=== PATIENT | male | born 1955 | race Caucasian/White ===

== ENCOUNTER 2021-05-23 11:52 | Observation (INO) | payer MEDICARE, MEDICAID ==
[~2021-05-23] VITALS: Ht 172.7 cm; Wt 62.1 kg
[~2021-05-23 11:52] MED LIST: AMLODIPINE BESY10 MG PO; ASPIRIN EC81 MG PO; FLONASE 0.05% N16 GM; HYDROCHLOROTHIA25 MG PO; LISINOPRIL40 MG PO; PROAIR HFA8.5 GM INH; VITAMIN D21250 MCG PO; ZYRTEC10 MG PO
[2021-05-23 12:45] LABS: HEMOGLOBIN 13.7 gm/dl (14.0-17.5); RED BLOOD COUNT 4.53 M/UL (4.20-5.50); WHITE BLOOD COUNT 11.6 K/UL (4.5-11.0)
[2021-05-23 13:08] LABS: BUN/CREATININE RATIO 13 (0-10)
[2021-05-23 20:09] LABS: BUN/CREATININE RATIO 12 (0-10)
[2021-05-24 01:43] LABS: HEMOGLOBIN 11.6 gm/dl (14.0-17.5); RED BLOOD COUNT 3.87 M/UL (4.20-5.50)
[2021-05-24 02:06] LABS: BUN/CREATININE RATIO 14 (0-10)
[2021-05-25 04:28] LABS: BUN/CREATININE RATIO 15 (0-10)
== END 2021-05-25 12:00 | disposition home or self-care (01) ==
LOC: ER1 11:52 → MED SURG 4 14:40 → CDU 14:40 → MED SURG 4 15:52 → M/S 05-24 16:48
PROVIDERS: Physician Assistant; ADMIT Internal Medicine
DX: R00.2 Palpitations (principal); Z20.822 Contact with and (suspected) exposure to COVID-19; I10 Essential (primary) hypertension; E87.1 Hypo-osmolality and hyponatremia; F17.210 Nicotine dependence, cigarettes, uncomplicated; Z79.82 Long term (current) use of aspirin; Z79.899 Other long term (current) drug therapy
CPT/HCPCS: ECHO; 36415; 71045; 80048; 80053; 82436; 82550; 82553; 83735; 83935; 84133; 84300; 84439; 84443; 84484; 85025; 93005; 93270; 93306; 99285; G0378; J7030; U0002

== ENCOUNTER → 2021-11-28 | Outpatient (CLI) | payer MEDICARE | LOC: HEART 5 09:28 | DX: J44.9 Chronic obstructive pulmonary disease, unspecified (principal) | CPT/HCPCS: 94010 ==